=== PATIENT | male | born 1995 | race Caucasian/White ===

== ENCOUNTER 2020-11-27 11:10 | Emergency (ER) | payer OTHER, SELFPAY ==
--- NOTE | ~2020-11-27 | XR_ITS ---
EXAMINATION: XR SOFT TISSUE NECK CLINICAL INDICATION: Pain. Injury. COMPARISON: None TECHNIQUE: 2 views of the soft tissue neck were obtained. FINDINGS: The epiglottis is normal appearing. The prevertebral soft tissues are normal. No abnormal air collection or foreign body is seen. The cervical spine is normal appearing. No fracture or dislocation is seen. XR/XR soft tissue neck IMPRESSION: Normal soft tissues of the neck.
[2020-11-27 11:23] VITALS: BP 131/83; PULSE 77; RESP 18; TEMP 36.6; O2SAT 99; BMI 21.1
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
== END 2020-11-27 13:25 | disposition home or self-care (01) ==
PROVIDERS: Emergency Provider Emergency Medicine
DX: M54.2 Cervicalgia (principal)
CPT/HCPCS: 70360; 99283